=== PATIENT | male | born 1955 | race Caucasian/White ===

== ENCOUNTER → 2022-06-04 | Day surgery (SDC) | payer OTHER ==
[~2022-06-04] VITALS: Ht 185.4 cm; Wt 85.3 kg
[~2022-06-04] MED LIST: ASPIR-LOW81 MG PO; CERTAGEN1 EACH PO; CRESTOR10 MG PO; CYCLOBENZAPRINE10 MG PO; NAPROXEN500 MG PO; NORCO 5-325 TA1 EACH PO; ONDANSETRON ODT8 MG PO
[2022-06-04 08:43] LABS: HCT 46.4 % (42.0-52.0); HGB 15.8 g/dl (13.2-18.0); MCH 30.6 pg (25.0-31.0); MCHC 34.1 g/dL (32.0-36.0); MCV 89.9 fL (78.0-100.0); MPV 10.9 fL (6.0-9.5); RBC 5.16 M/uL (4.70-6.00); RDW 11.8 % (11.5-14.0); WBC 5.6 K/uL (4.0-10.5)
[2022-06-04 09:14] LABS: BILIRUBIN - TOTAL 0.7 mg/dL (0.2-1.0); BUN/CREAT RATIO (CALC) 22.1 RATIO; CREATININE 0.68 mg/dL (0.67-1.17); GLOBULIN (CALCULATION) 3.1 g/dL; POTASSIUM 4.3 mmol/L (3.5-5.1); TOTAL PROTEIN 7.1 g/dL (6.4-8.2)
--- NOTE | 2022-06-04 12:45 | NUR ---
1245 UP TO BATHROOM WITH STANDBY ASSISST. VOIDED LARGE AMOUNT YELLOW URINE WITH EASE.
== END | disposition home or self-care (01) ==
LOC: FAS 08:15
PROVIDERS: Surgery
DX: K40.30 Unilateral inguinal hernia, with obstruction, without gangrene, not specified as recurrent (principal); K66.0 Peritoneal adhesions (postprocedural) (postinfection); E78.5 Hyperlipidemia, unspecified; M19.90 Unspecified osteoarthritis, unspecified site
CPT/HCPCS: 36415; 80053; C1727; C1781; J0690; J1100; J2250; J2405; J2704; J3010; J7120